=== PATIENT | female | born 1990 | race Caucasian/White ===

== ENCOUNTER → 2023-11-14 15:07 | Outpatient (REF) | payer OTHER, SELFPAY | LOC: PNTC 15:07 | PROVIDERS: ATTENDING PHYSICIAN Nurse Practitioner Women's Health | DX: N83.202 Unspecified ovarian cyst, left side (principal); Z34.81 Encounter for supervision of other normal pregnancy, first trimester | CPT/HCPCS: 76801 ==

== ENCOUNTER 2024-07-10 11:48 | Day surgery (SDC) | payer OTHER, SELFPAY ==
[2024-07-10] VITALS (13 sets, daily range): BP systolic 104–126; BP diastolic 57–82; BMI 28.4
[2024-07-10 05:12] LABS: Urine Albumin 1+ (Neg - Trace); Urine Bilirubin Negative (Negative); Urine Character Slightly Cloudy (Clear); Urine Color Yellow; Urine Glucose Negative (Negative); Urine Ketone Negative (Negative); Urine Leukocyte 1+ (Negative); Urine Nitrite Negative (Negative); Urine Occult Blood 3+ (Negative); Urine Urobilinogen Negative (Neg - 1+)
[2024-07-10 05:23] LABS: ALT (SGPT) 51 U/L (0-35); AST (SGOT) 79 U/L (14-36); Alkaline Phosphatase 75 U/L (38-126); Blood Urea Nitrogen 10 mg/dl (7-17); Calcium 8.9 mg/dl (8.4-10.2); Carbon Dioxide 22 mmol/L (22-30); Chloride 105 mmol/L (98-107); Estimated Creatinine Clearance > 125 ml/min; Glucose 122 mg/dl (70-99); Lipase 177 U/L (23-300); Potassium 3.7 mmol/L (3.5-5.1); Sodium 137 mmol/L (135-145); Total Protein 6.8 g/dl (6.3-8.2); eGFR > 60.00
[2024-07-10 05:44] LABS: Urine Mucus Moderate; Urine Squamous Cell >30 /LPF (Few)
[2024-07-10 05:46] LABS: Urine Bacteria Moderate (Negative)
[2024-07-10 05:59] LABS: % Basophils 0.3 % (0-2); % Eosinophils 1.3 % (0-6); % Immature Granulocytes 0.3 % (0-0.5); % Lymphocytes 10.8 % (20.5-51.1); % Monocytes 8.1 % (1.7-9.3); % Neutrophils 79.2 % (42.2-75.2); Absolute Eosinophils 0.1 10^3/uL (0-0.7); Absolute Lymphocytes 1.1 10^3/uL (1.2-3.4); Absolute Monocytes 0.8 10^3/uL (0.1-0.6); Absolute Neutrophils 8.2 10^3/uL (1.4-6.5); Hematocrit 37.6 % (37.0-47.0); Hemoglobin 12.3 g/dL (12.0-16.0); Mean Corp Hgb Conc. 32.7 g/dL (33.0-37.0); Mean Corpuscular Hgb 28.8 pg (27.0-31.0); Mean Corpuscular Volume 88.1 fL (81.0-99.0); Mean Platelet Volume 10.3 fL (7.4-10.4); Nucleated Red Blood Cells % 0 %; Platelet Count 203 10^3/uL (130-400); Red Blood Cell Count 4.27 10^6/uL (4.20-5.40); Red Cell Dist. Width 12.2 % (11.5-14.5); White Blood Cell Count 10.4 10^3/uL (4.8-10.8)
--- NOTE | 2024-07-10 06:03 | ED.GENMED ---
History of Present Illness
General
Chief Complaint: Abdominal Pain
Source: patient
Exam Limitations: none
Time Seen by Provider: 07/10/24 05:54
History of Present Illness
History of Present Illness:
Patient complaining of intermittent episodes of right sided mid back pain radiating to the flank and to the right mid quadrant. Typically last 10 or 15 minutes. Has had 4-5 episodes previously. First episode was in the hospital after her second
. was unremarkable. No lower abdominal pain vaginal bleeding discharge. No left-sided pain. No relation to eating. No previous episodes prior to her . This episode was associated with nausea and vomiting.
Past History
Past History
ED Past Medical History: None
ED Past Surgical History: and Orthopedic
Social History
Tobacco: Non-smoker
Personal:
Living: with family
Employment: Employed
Review of Systems
Review of Systems
All Other Systems: Not applicable
Constitutional: Denies fever or chills
Respiratory: Reports no symptoms
ABD/GI: Denies diarrhea
: Denies dysuria or frequency
Phy Exam
Physical Exam
Physical Exam:
GENERAL: Alert and oriented in no apparent distress
EYE: Orbits normal.
NECK: Supple
CARDIAC: Regular rate and rhythm without any obvious murmurs.
LUNGS: Clear breath sounds,normal
ABDOMEN: Soft, without focal tenderness or distention. Specifically no right upper quadrant tenderness. No CVA tenderness.
NEUROLOGICAL: Alert and oriented , grossly non-focal
SKIN: Warm and dry, no rash or lesion, no discoloration, skin intact.
MUSCULOSKELETAL: No edema,no deformity.Good color
PSYCH: Normal and appropriate interaction.
Course
Orders/Labs/Results
Orders:
Orders
07/10/24 04:50
Comprehensive Metabolic Panel Urgent
Lipase Urgent
Urine Microscopic Reflex Cult Urgent
Urine Reflex Culture from [facility] [Urinalysis Reflex To Culture] Urgent
Date Specimen was Collected: 07/10/24
Time Specimen was Collected: 04:32
Urine Culture Urgent
MOIZ Source: U
Specimen Description:
Date Specimen was Collected: 07/10/24
Time Specimen was Collected: 04:32
07/10/24 05:37
Complete Blood Count/With Diff Urgent
07/10/24 06:02
IV Insert/Care/Rem.- Treatment PRN
0.9% Sodium Chloride 1000 ml [Nss] 1,000 ml IV BOLUS
07/10/24 06:03
US Abdomen Complete/Upper Urgent
Comment:
Reason For Exam: Right mid back pain radiating to the right flank
07/10/24 09:48
Admit/Transfer Patient As Directed
Co-Sign Provider:
Level of Care: Post Proc/Surg Recovery
Assign to:: Medical/Surgical
Physician / Group: Chris Monk
Diagnosis: Acute biliary colic/acute calculus cholecystitis
Reason for Overnight Stay: Require IV med-pain
07/10/24 09:49
Code Status As Directed
Resuscitation Status: Full Code
PRN Pain Medication Management As Directed
May give lesser potent ordered pain med per pt: Yes
preference::
Protocol:: Medication orders for pain may be administered in a
manner that supports deferring to patient preference
when the pt is:
- Requesting an ordered lesser potent pain medication.
Least to most potent pain medications are defined
as: acetaminophen < NSAID < tramadol < opioids
(morphine, oxycodone, hydromorphone).
- Requesting a lesser dose of the same medication IF
ORDERED.
- Requesting a less intrusive route of administration
if both routes are prescribed by the provider (PO <
IV).
07/10/24 10:00
CefoTEtan [Cefotan] 2,000 mg IV PRE PROCEDURE ONE
Sterile Water [Sterile Water For Injection] 10 ml IV OR ONE
07/10/24 10:02
Bupivacaine 0.5%Pf/Epinephrin [Sensorcain-Mpf Epi 0.5%-0.0005] 30 ml .ROUTE .STK-MED ONE
Iohexol [Omnipaque] 50 ml .ROUTE .STK-MED ONE
07/10/24 10:05
HYDROmorphone [Dilaudid] 0.25 mg IV PACU-Q5MPRN PRN
HYDROmorphone [Dilaudid] 0.5 mg IV PACU-Q5MPRN PRN
Meperidine [Demerol] 12.5 mg IV PACU-Q5MPRN PRN
Ondansetron Injectable [Zofran] 4 mg IV PACU-ONCEPRN PRN
Prochlorperazine [Compazine] 5 mg IV PACU-ONCEPRN PRN
Notify MD As Directed
Notify physician if: for SDS patients with known or suspected sleep obstructive sleep apnea, monitor in the
PACU.
Notify MD for any apneic/desaturation episodes
O2 Therapy [RESP] Urgent
Titrate/Wean O2 to maintain O2 sat greater than (%): 92
Special Instructions: -Provide supplemental oxygen to achieve O2 sat of 92% or greater.
-After 15 min, may wean O2 and discontinue if patient is able to maintain O2 sat of 92%
or greater during recovery period.
If patient is a discharge home, without oxygen therapy, notify anestheiologist if
unable to maintain O2 SAT of 92% or greater on room air for MD clearance.
07/10/24 10:10
Test Result ONCE
07/10/24 10:13
HCG, Urine Qualitative Screen Stat
Date Specimen was Collected: 07/10/24
Time Specimen was Collected: 10:11
Urinalysis Reflex To Culture Urgent
Date Specimen was Collected: 07/10/24
Time Specimen was Collected: 10:08
07/10/24 10:15
Normosol (Mult Electrolytes) [Normosol-R/Plasmalyte-A] 1,000 ml IV PER PROTOCOL
07/10/24 10:21
Fentanyl Citrate/Pf [Sublimaze] 100 mcg .ROUTE .STK-MED ONE
Midazolam HCl [Versed] 2 mg .ROUTE .STK-MED ONE
07/10/24 10:22
Dexamethasone Sod Phosphate [Decadron] 20 mg .ROUTE .STK-MED ONE
Ketorolac [Toradol] 30 mg .ROUTE .STK-MED ONE
Lidocaine HCl/Pf [Xylocaine-Mpf 1% Vial] 50 mg .ROUTE .STK-MED ONE
Ondansetron Injectable [Zofran] 4 mg .ROUTE .STK-MED ONE
Phenylephrine HCl/0.9% NaCl [Shorty-Synephrine] 1,000 mcg .ROUTE .STK-MED ONE
Propofol [Diprivan] 20 ml .ROUTE .STK-MED
Rocuronium Thurston [Rocuronium] 50 mg .ROUTE .STK-MED ONE
07/10/24 10:56
Metoclopramide [Reglan] 10 mg .ROUTE .STK-MED ONE
07/10/24 11:00
OR Pathology Routine
Pre-Operative Diagnosis: ACUTE CHOLECYSTITIS
Post-Operative Diagnosis: ACUTE CHOLECYSTITIS
Operative Procedure: LAPARASCOPIC CHOLECYSTECTOMY
Surgeon: YAAKOV
Circulating Nurse: LOLA
Specimen Type: GALLBLADDER
RF Fluoroscopy, C-arm Urgent
Reason For Exam: GALLSTONES
RF Operative Cholangiogram Urgent
07/10/24 11:30
HYDROmorphone [Dilaudid] 1 mg .ROUTE .STK-MED ONE
07/10/24 11:31
Glycopyrrolate [Robinul] 0.2 mg .ROUTE .STK-MED ONE
Neostigmine [Prostigmin] 3 mg .ROUTE .STK-MED ONE
07/10/24 11:53
HYDROmorphone [Dilaudid] 0.5 mg .ROUTE .STK-MED ONE
07/10/24 11:55
Discharge Patient As Directed
07/10/24 12:17
Ondansetron Injectable [Zofran] 4 mg .ROUTE .STK-MED ONE
Abnormal Lab Results
07/10/24 07/10/24
04:50 05:37
MCHC 32.7 L g/dL
(33.0-37.0)
Absolute Neuts (auto) 8.2 H 10^3/uL
(1.4-6.5)
Absolute Lymphs (auto) 1.1 L 10^3/uL
(1.2-3.4)
Absolute Monos (auto) 0.8 H 10^3/uL
(0.1-0.6)
Neutrophils % 79.2 H %
(42.2-75.2)
Lymphocytes % 10.8 L %
(20.5-51.1)
Creatinine 0.5 L mg/dL
(0.6-1.0)
Glucose 122 H mg/dl
(70-99)
AST 79 H U/L
(14-36)
ALT 51 H U/L
(0-35)
Ur Occult Blood Reflex 3+ A
(Negative)
Leukocyte Esterase Rfl 1+ A
(Negative)
Urine RBC 3-6 A /HPF
(0-2)
Urine WBC (Reflex) 11-15 A /HPF
(0-5)
Urine Bacteria (Reflex) Moderate A
(Negative)
Urine Albumin (Reflex) 1+ A
(Neg - Trace)
07/10/24 05:37
07/10/24 04:50
Vital Signs
Initial and Last Documented VS:
Initial Vital Signs
Temp Pulse Resp BP Pulse Ox
98.1 F 88 17 121/74 98
07/10/24 04:09 07/10/24 04:09 07/10/24 04:09 07/10/24 04:09 07/10/24 04:09
Last Documented Vital Signs
Temp Pulse Resp BP Pulse Ox
97.4 F 60 12 119/64 98
07/10/24 12:30 07/10/24 12:30 07/10/24 12:30 07/10/24 12:30 07/10/24 12:30
MDM/Problems Addressed
Differential Diagnosis Includes:
Patient with intermittent episodes of right mid back pain to the right flank. This was associated with nausea and vomiting. Differential would include kidney stone biliary colic nonspecific pain. Doubt appendix. Doubt any issue directly related
to the . Workup in progress
*Pulse Oximetry
Patient hypoxic: no
*Critical Care Note
Total Time (30-74mins, 75-104mins- exclusive of procedures): Not Applicable
Data Reviewed
Review of Other/Old Records Reveals: Labs, Records and Testing
ED Attending Note
-
Portions of this chart may have been created with voice recognition software.� Occasional wrong word or��sound alike� substitutions may have occurred due to the inherent limitations of voice recognition software.
Discharge Plan
Departure
Patient Disposition: Admit
Date of Disposition: 07/10/24
Time of Disposition: 10:01
Presentation/result/management discussed w/ accepting MD/DO: surgery
Discharge Problem:
Biliary colic/acute cholecystitis
Interventions
Interventions:
*Risk Screen - Suicide Last Done: 07/10/24 04:09
*General Assessment Last Done: 07/10/24 06:25
*Neglect/Abuse Screening Last Done: 07/10/24 05:12
ED- Fall Risk Assessment Last Done: 07/10/24 05:13
*ED COVID-19 Vaccine History Last Done: 07/10/24 05:12
*Nursing Disposition Last Done: 07/10/24 10:20
FO-Vxqams-Loylinnxoe Assessment Last Done: 07/10/24 05:13
Discharge Date and Time
Discharge Date/Time: 07/10/24 10:15
[2024-07-10] MEDS: NSS 1000 IV (06:18)
--- NOTE | 2024-07-10 09:44 | HP.FOC2 ---
Focused History & Physical
Chief Complaint
HPI:
Chief Complaint: Epigastric and right upper quadrant
HPI / Indication for Planned Procedure: Patient is a 34-year-old female recently who has been experiencing intermittent bouts of epigastric and right upper quadrant abdominal pain. Awoke overnight with another episode but worse in
severity than previously with associated nausea and vomiting prompting emergency department evaluation. Nausea is subsiding. Pain is improving but still present.
Relevant Past Medical History: Negative
Relevant Social History: Negative
Relevant Family History: Negative
Relevant Past Surgical History: Positive for ( x 2)
Review of Systems
Review of Pertinent Systems: All Systems Negative
Medication
See Medication form for detailed medications: Yes
Medication List (including Herbals & OTC):
No Meds [No Current Medications] 07/10/24
Medications Reviewed: Yes
Allergies and Reactions
Patient has Allergies: Yes
Noted Allergies and Reactions:
Allergy/AdvReac Type Severity Reaction Status Date / Time
morphine Allergy Rash Verified 07/10/24 04:08
Pertinent Physical Exam
All Other Systems: Negative
Head/Neck: Normal
Lungs: Normal
Heart: Normal
Abdomen: Other (Soft, nondistended, tenderness palpation epigastrium and right upper quadrant. Some voluntary guarding on deep palpation.)
Extremities: Normal
Neurological: Normal
Diagnosis / Assessment
34-year-old female presenting with acute calculus cholecystitis versus acute biliary colic.
Ultrasound confirmed cholelithiasis, mild gallbladder wall thickening and edema. No biliary ductal dilation. Slight elevation in AST and ALT with normal bilirubin and alkaline phosphatase. Normal white blood cell count with left shift.
Discussed with patient indications for consideration of cholecystectomy for management of acute biliary colic versus acute calculus cholecystitis. We also discussed alternative of attempted nonoperative management likely high risk of relapse.
Patient wishes to proceed with cholecystectomy. Laparoscopic cholecystectomy with intraoperative cholangiogram was reviewed in detail the patient including the operative technique, potential operative findings and their management (positive IOC
requiring postoperative ERCP), alternative treatment options, benefits and risks of surgery such as but not limited to bleeding, infectious and wound related complications, iatrogenic injury to surrounding viscera, bile duct injury, bile leak,
postoperative fatty food intolerances. And he the patient's concerns or questions were fully addressed.
Plan / Procedure
Patient has been added onto the OR schedule today for lap james with cholangiogram
Supportive care awaiting OR availability
Antibiotics on-call the OR
Advised patient that it may be myself or general surgery partner performing her operation depending on timing and OR availability as well which she is comfortable with.
Anesthesia/Sedation to be done by Anesthesia Provider: Yes
--- NOTE | 2024-07-10 10:01 | W.SUR.PREOP ---
Pre-Operative Surgical Note
-
I have examined this patient prior to the performance of the scheduled procedure.
The patient's condition is unchanged from the time of the current History and
Physical and the patient is able to undergo the scheduled procedure.
--- NOTE | 2024-07-10 10:15 | EDRN ---
Report given to SANTHOSH Coreas in the OR. Patient taken to OR by .
[2024-07-10 10:47] LABS: HCG, Urine Qualitative Screen Negative
[2024-07-10 10:55] LABS: Urine Albumin Negative (Neg - Trace); Urine Bilirubin Negative (Negative); Urine Character Slightly Cloudy (Clear); Urine Color Yellow; Urine Glucose Negative (Negative); Urine Ketone Negative (Negative); Urine Leukocyte Negative (Negative); Urine Nitrite Negative (Negative); Urine Occult Blood Negative (Negative); Urine Urobilinogen Negative (Neg - 1+)
[2024-07-10] MEDS: DILAUDID 0.5 MG IV (11:53)
--- NOTE | 2024-07-10 11:53 | W.IMMPOSTOP ---
Surgical Immed Post Op Note
-
Primary Surgeon: Julio Cesar Giraldo MD
Assisting Surgeon: None
Pre-op Diagnosis: Acute cholecystitis
Post-op Diagnosis: Same
Procedure Performed: Laparoscopic cholecystectomy with cholangiogram
Anesthesia Type: General
Specimen / Cultures: Gallbladder and contents
Estimated Blood Loss: 7 cc
Complications: None
Operative Findings: Veress needle entry. Some minimal adhesions to the gallbladder. Critical view of safety obtained prior to a cholangiogram which demonstrated no distal filling defects. No significant the cystic artery identified, a posterior
cystic artery along the liver was identified and clipped. Patient had evidence of fatty liver disease, there was a small tear in the liver capsule near the insertion of the falciform ligament secondary to retraction which was cauterized
POST OP PLAN:
If patient able to tolerate diet, will discharge home from PACU today
--- NOTE | 2024-07-10 11:55 | OR.RPT ---
Operative Report
Operative Report
Patient Name: Jacque Blandon
: 1990
Date of Operation: 07/10/2024
Preoperative Diagnosis: Acute cholecystitis
Postoperative Diagnosis: Same
Procedure(s):
Laparoscopic Cholecystectomy with Cholangiogram
Surgeon(s):
Dr. Giraldo
Stunt Person(s):
RONALD Reyes
Anesthesia: General
Estimated Blood Loss: 7 cc
Urine Output: None
Drains/Lines/Implants: None
Specimens:
1. Gallbladder and contents
HPI/Surgical Indications:
This is a 34-year-old female who presents with a 1 day history of postprandial right upper quadrant abdominal pain, in the setting of multiple similar episodes over the past few months during her . She is now 1 month . Exam, labs
and imaging are consistent with acute cholecystitis. Versus biliary colic risks/Benefits/Alternatives were discussed at length, and the patient agreed to proceed with surgery.
Operative Findings: Veress needle entry. Some minimal adhesions to the gallbladder. Critical view of safety obtained prior to a cholangiogram which demonstrated no distal filling defects. No significant the cystic artery identified, a posterior
cystic artery along the liver was identified and clipped. Patient had evidence of fatty liver disease, there was a small tear in the liver capsule near the insertion of the falciform ligament secondary to retraction which was cauterized
Procedure Description:
The patient was brought to the Operating Room and placed in the supine position with one arm tucked. Following uneventful induction of general endotracheal anesthesia, an orogastric tube was placed. The abdomen was prepped and draped in the usual
sterile fashion. A timeout was performed confirming the procedure, consent, and that IV antibiotics were infused and sequential compression devices were confirmed to be on. The abdomen was entered using a left subcostal Veress technique which
required a single pass followed by a 5 mm right upper quadrant Optiview trocar. Pneumoperitoneum to 15 mmHg pressure was obtained without difficulty and we confirmed that no injury had occurred during our entry. The patient was positioned in
reverse Trendelenberg and rotated with the right side up slightly. Two 5 mm trocars were then placed along the right subcostal margin, followed by a 12 mm port in the epigastrium. A locking grasping forceps was placed on the fundus of the
gallbladder where it was then retracted cephalad and to the right. Using appropriate grasping instruments, the peritoneum overlying the triangle of Calot was incised and extended superiorly on both the anterior and posterior gallbladder leon. The
infundibulum was dissected off the cystic plate. The cystic triangle was dissected until a critical view of safety was achieved. The cystic artery was medialized, dissected and controlled with 2 proximal clips and 1 distal. The cystic
duct/gallbladder junction in turn was identified, dissected circumferentially and a clip was placed. A ductotomy was made and a cholangiocatheter on an Up clamp was inserted into the cystic duct. A C-arm was draped and brought into the field. An
intra-operative cholangiogram was performed and was noted to have:
No filling defects in the biliary tree
No significant biliary dilation
Brisk flow of contrast into the duodenum
Normal biliary anatomy
The catheter was then removed and the cystic duct was controlled with two clips, followed by a 0 PDS Endoloop. After ensuring both the artery and duct were divided, the gallbladder was freed from the liver using electrocautery. There was no
spillage of bile or stones. The gallbladder bed was inspected and excellent hemostasis was obtained. The gallbladder was extracted through the 12 mm trocar site using an endocatch bag. There was a tear in the liver capsule near the insertion of
the falciform ligament that was cauterized. The abdomen was again irrigated and excellent hemostasis was assured. All remaining trocars were then removed and the pneumoperitoneum was evacuated. The 12 mm trocar site was closed using 0 PDS suture.
All trocar sites were closed at the skin level using 4-0 Monocryl followed by Dermabond. Overall, the patient tolerated the procedure well and was taken to the Recovery Room postoperatively in stable condition.
Guero was the attending physician and performed the procedure with assistance of the PA above. The assistance of RONALD Reyes was required due to the complexity of the procedure. During the procedure Beulah assisted with retraction, resection, and
closure of the wound. I was present for all portions of the case, excluding skin closure.
Julio Cesar Giraldo MD
[2024-07-10] MEDS: ZOFRAN 4 MG IV (12:19)
== END 2024-07-10 14:12 | disposition home or self-care (01) ==
LOC: PACU 11:48
PROVIDERS: Anesthesiology; Emergency Medicine; ATTENDING PHYSICIAN Surgery; EMERGENCY PHYSICIAN Emergency Medicine
DX: K80.10 Calculus of gallbladder with chronic cholecystitis without obstruction (principal); K82.4 Cholesterolosis of gallbladder
CPT/HCPCS: 47563; 88304; 74300; 76000; 76700; 80053; 81003; 81015; 81025; 83690; 85025; 87086; 96360; 99285; A4300